=== PATIENT | female | born 1955 | race Caucasian/White ===

== ENCOUNTER → 2020-08-18 10:16 | Outpatient (CLI) | payer MEDICARE, OTHER ==
--- NOTE | ~2020-08-18 | ST ---
PATIENT:CADE ERVIN MEDICAL RECORD: [id number] SEX: F LOCATION:[facility] ORDER #: ADMISSION DATE: 08/18/20 AGE OF PATIENT: 64 REFERRING PHYSICIAN: INTERPRETING PHYSICIAN: SHELLY HORTON MD DATE OF SERVICE: 08/18/2020 NUCLEAR STRESS TEST GATED: Normal. Normal wall motion. Normal wall thickening. Calculated EF 76%. SPECT IMAGING: SPECT imaging was performed. 1. Short axis view: Short axis view shows good uptake along the anterior wall, lateral wall and inferior wall. 2. Horizontal axis: Horizontal axis confirms good uptake along the anterior wall and inferior wall. 3. Vertical axis: Vertical axis shows good uptake along the lateral wall and septum. FINAL IMPRESSION: 1. Normal gated, normal wall motion, normal ejection fraction 76%. 2. Normal SPECT imaging. FINAL RECOMMENDATIONS: This scan was felt to be a low risk for any significant ongoing ischemia or previous myocardial infarction. LV function remains normal. Continue risk factor modification. Medical management is recommended. TRANSINT:[id number] Voice Confirmation ID: [id number] DOCUMENT ID: [id number] SHELLY HORTON MD CC: [id number] DICTATION DATE: 08/19/20 1112 KITCHENHAND: 08/20/20 0410 DEP CLI 08/18/20 [place] [id number]
== END | disposition home or self-care (01) ==
LOC: D.HCCARDIO 10:00
PROVIDERS: ATTEND Internal Medicine Interventional Cardiology
DX: R07.9 Chest pain, unspecified (principal); I20.9 Angina pectoris, unspecified